=== PATIENT | female | born 1985 | race Hispanic/Latino ===

== ENCOUNTER 2020-08-19 00:14 | Emergency (ER) | payer MEDICAID ==
[~2020-08-19] VITALS: Ht 180.3 cm; Wt 174.6 kg
[~2020-08-19 00:14] MED LIST: DICY20TA11 PO; FAMO20TA8 PO; LEVO500T89 PO; METF-890 PO; METR-172 PO; VENL150T3 PO
[2020-08-19 00:22] VITALS: BP 141/83
[2020-08-19 00:59] LABS: BASOPHILS % (AUTO) 0.5 % (0.0-5.0); HEMATOCRIT 39.2 % (36-48); LYMPHOCYTES % (AUTO) 34.3 % (21.0-51.0); MEAN CORPUSCULAR HEMOGLOBIN 27.3 pg (27.0-33.0); MEAN CORPUSCULAR HGB CONC 32.4 g/dL (32.0-36.0); MEAN CORPUSCULAR VOLUME 84.3 fL (79-99); MONOCYTES % (AUTO) 4.2 % (3.0-13.0); NEUTROPHILS % (AUTO) 57.7 % (40.0-77.0); PLATELET COUNT (AUTO) 285 K/uL (130-400); RED BLOOD CELL COUNT(AUTO) 4.65 MIL/uL (4.00-5.50); RED CELL DISTRIBUTION WIDTH 16.2 % (11.0-15.5); WHITE BLOOD COUNT (AUTO) 10.5 K/uL (4.8-10.8)
[2020-08-19 01:12] LABS: CARBON DIOXIDE 26 mmol/L (21-32); CHLORIDE 105 mmol/L (101-111); GLOMERULAR FILTR. RATE CALC 67 mL/min (>60); GLUCOSE,RANDOM 114 mg/dL (70-105); POTASSIUM 3.5 mmol/L (3.5-5.1); SODIUM SERUM 141 mmol/L (136-145); UREA NITROGEN, BLOOD 13 mg/dL (7-18)
[2020-08-19 01:16] LABS: ALANINE AMINOTRANSFERASE 33 U/L (12-78); ALBUMIN 3.5 g/dL (3.5-5.0); ASPARTATE AMINOTRANSFERASE 17 U/L (10-37); BILIRUBIN,TOTAL 0.2 mg/dL (0.2-1.0); CREATINE KINASE, TOTAL 75 U/L (21-232); TOTAL PROTEIN, SERUM 7.6 g/dL (6.0-8.3)
[2020-08-19 01:18] LABS: SALICYLATE < 2.8 mg/dL (2.8-20.0)
[2020-08-19 01:19] LABS: ACETAMINOPHEN < 1 mcg/mL (10-30); ALCOHOL, BLOOD < 3 mg/dL (0-10)
[2020-08-19 04:30] LABS: APPEARANCE,URINE Clear (CLEAR); BILIRUBIN,URINE Negative (NEGATIVE); COLOR,URINE Yellow (YELLOW); GLUCOSE, URINE (UA) Negative (NEGATIVE); KETONES,URINE Trace mg/dL (NEGATIVE); LEUKOCYTE ESTERASE ,URINE Negative (NEGATIVE); NITRATE,URINE Negative (NEGATIVE); OCCULT BLOOD,URINE Moderate (NEGATIVE); PROTEIN,URINE Negative (NEGATIVE); UROBILINOGEN,URINE 0.2 mg/dL (0.2-1.0)
[2020-08-19 04:32] LABS: HCG,QUAL RESULT NEGATIVE (NEGATIVE)
[2020-08-19 04:39] LABS: AMPHET/METH SCREEN,URINE NEGATIVE (NEGATIVE); BARBITURATE SCREEN, URINE NEGATIVE (NEGATIVE); BENZODIAZEPINES SCREEN,URINE NEGATIVE (NEGATIVE); CANNABINOID SCREEN,URINE NEGATIVE (NEGATIVE); COCAINE SCREEN,URINE NEGATIVE (NEGATIVE); OPIATE SCREEN,URINE NEGATIVE (NEGATIVE); PHENCYCLIDINE SCREEN,URINE NEGATIVE (NEGATIVE)
[2020-08-19 04:40] LABS: BACTERIA,URINE Rare /HPF (None Seen); SQUAMOUS EPITHELIAL CELL,UR Rare /HPF (0-2); WBC,URINE None Seen /HPF (0-1)
== END 2020-08-19 06:22 | disposition home or self-care (01) ==
LOC: EDH 00:14
DX: R45.851 Suicidal ideations (principal); F19.10 Other psychoactive substance abuse, uncomplicated; R19.7 Diarrhea, unspecified; I10 Essential (primary) hypertension; E11.9 Type 2 diabetes mellitus without complications; J45.909 Unspecified asthma, uncomplicated; Z79.84 Long term (current) use of oral hypoglycemic drugs; Z79.899 Other long term (current) drug therapy
CPT/HCPCS: 36415; 80053; 80305; 81001; 81025; 82550; 85025; 99283; G0481

== ENCOUNTER 2020-08-31 03:26 | Emergency (ER) | payer MEDICAID ==
[~2020-08-31] VITALS: Ht 180.3 cm; Wt 174.6 kg
[2020-08-31 03:58] VITALS: BP 113/50
[2020-08-31 04:49] LABS: HEMATOCRIT 37.7 % (36-48); MEAN CORPUSCULAR HEMOGLOBIN 27.6 pg (27.0-33.0); MEAN CORPUSCULAR HGB CONC 32.9 g/dL (32.0-36.0); MEAN CORPUSCULAR VOLUME 83.8 fL (79-99); PLATELET COUNT (AUTO) 269 K/uL (130-400); RED CELL DISTRIBUTION WIDTH 15.5 % (11.0-15.5); WHITE BLOOD COUNT (AUTO) 8.3 K/uL (4.8-10.8)
[2020-08-31 04:51] LABS: APPEARANCE,URINE Clear (CLEAR); BILIRUBIN,URINE Negative (NEGATIVE); COLOR,URINE Yellow (YELLOW); GLUCOSE, URINE (UA) Negative (NEGATIVE); KETONES,URINE Negative (NEGATIVE); LEUKOCYTE ESTERASE ,URINE Trace (NEGATIVE); NITRATE,URINE Negative (NEGATIVE); OCCULT BLOOD,URINE Large (NEGATIVE); PROTEIN,URINE Negative (NEGATIVE); UROBILINOGEN,URINE 0.2 mg/dL (0.2-1.0)
[2020-08-31 04:59] LABS: AMPHET/METH SCREEN,URINE NEGATIVE (NEGATIVE); BARBITURATE SCREEN, URINE NEGATIVE (NEGATIVE); BENZODIAZEPINES SCREEN,URINE NEGATIVE (NEGATIVE); CANNABINOID SCREEN,URINE NEGATIVE (NEGATIVE); COCAINE SCREEN,URINE NEGATIVE (NEGATIVE); OPIATE SCREEN,URINE NEGATIVE (NEGATIVE); PHENCYCLIDINE SCREEN,URINE NEGATIVE (NEGATIVE)
[2020-08-31 05:00] LABS: CREATININE 1.1 mg/dL (0.5-1.5); POTASSIUM 3.1 mmol/L (3.5-5.1)
[2020-08-31 05:02] LABS: ALBUMIN 3.4 g/dL (3.5-5.0); BILIRUBIN,TOTAL 0.2 mg/dL (0.2-1.0); TOTAL PROTEIN, SERUM 7.8 g/dL (6.0-8.3)
[2020-08-31 05:20] LABS: RBC,URINE None Seen /HPF (0-1); WBC,URINE 0-1 /HPF (0-1)
[2020-08-31 05:21] LABS: BACTERIA,URINE Rare /HPF (None Seen); SQUAMOUS EPITHELIAL CELL,UR Few /HPF (0-2)
[2020-08-31 05:47] LABS: EOSINOPHILS % (MANUAL) 2 % (1-6); LYMPHOCYTES % (MANUAL) 32 % (22-44); MONOCYTES % (MANUAL) 7 % (2-9); SEGMENTED NEUTROPHILS % 59 % (40-70)
[2020-08-31 05:48] LABS: MAN.DIFF COMMENT-IMPRESSION MANUAL DIFFERENTIAL; PLATELET MORPHOLOGY COMMENT ADEQUATE
[2020-08-31] MEDS: METRONIDAZOLE 500MG/100ML BAG 100 ML IVPB ONE (05:49)
[2020-08-31] MEDS: ONDANSETRON 4MG INJ IVP ONE (05:49)
[2020-08-31] MEDS: KETOROLAC 30MG VIAL (30MG/ML) IV ONE (05:49)
[2020-08-31] MEDS: 0.9%NACL 1000ML 1,000 ML IV ONE (05:49)
[2020-08-31] MEDS ORDERED: DICY20TA2 PO (06:01)
[2020-08-31] MEDS ORDERED: ONDA4TAB10 PO (06:01)
[2020-08-31] MEDS ORDERED: METR500T PO (06:01)
[2020-08-31] MEDS ORDERED: LEVO750T46 PO (06:01)
[2020-08-31 06:38] VITALS: BP 133/87
[2020-08-31] MEDS: LEVOFLOXACIN 750 MG/D5W 150 ML 150 ML IV SCH (06:49)
== END 2020-08-31 06:56 | disposition home or self-care (01) ==
LOC: EDH 04:30
DX: K57.92 Diverticulitis of intestine, part unspecified, without perforation or abscess without bleeding (principal); E86.9 Volume depletion, unspecified; E11.9 Type 2 diabetes mellitus without complications; F31.9 Bipolar disorder, unspecified; F41.9 Anxiety disorder, unspecified; Z79.1 Long term (current) use of non-steroidal anti-inflammatories (NSAID); Z79.84 Long term (current) use of oral hypoglycemic drugs; Z79.899 Other long term (current) drug therapy
CPT/HCPCS: 36415; 80053; 80305; 81001; 83690; 84703; 85025; 96365; 96375; 99284; J1885; J2405; J3490

== ENCOUNTER 2020-09-07 04:08 | Emergency (ER) | payer MEDICAID ==
[~2020-09-07] VITALS: Ht 180.3 cm; Wt 176.9 kg
[~2020-09-07 04:08] MED LIST changes: +DICY20TA2 PO; +LEVO750T46 PO; +METR500T PO; +ONDA4TAB10 PO
[2020-09-07 04:14] VITALS: BP 137/87
[2020-09-07 05:05] LABS: APPEARANCE,URINE Clear (CLEAR); BILIRUBIN,URINE Negative (NEGATIVE); COLOR,URINE Yellow (YELLOW); GLUCOSE, URINE (UA) Negative (NEGATIVE); KETONES,URINE Trace mg/dL (NEGATIVE); LEUKOCYTE ESTERASE ,URINE Negative (NEGATIVE); NITRATE,URINE Negative (NEGATIVE); OCCULT BLOOD,URINE Negative (NEGATIVE); PROTEIN,URINE Trace mg/dL (NEGATIVE)
[2020-09-07 05:11] LABS: BACTERIA,URINE None Seen /HPF (None Seen); RBC,URINE 0-1 /HPF (0-1); SQUAMOUS EPITHELIAL CELL,UR 0-2 /HPF (0-2); WBC,URINE 0-1 /HPF (0-1)
[2020-09-07] MEDS ORDERED: DICY20TA2 PO (05:41)
[2020-09-07] MEDS ORDERED: METO-296 PO (05:41)
[2020-09-07] MEDS ORDERED: PANT40TA54 PO (05:41)
[2020-09-07] MEDS ORDERED: ONDA4TAB10 PO (05:41)
[2020-09-07] MEDS ORDERED: MAG/ALUM/SIMETH 30 ML UDCUP PO ONE (06:00)
[2020-09-07] MEDS ORDERED: FAMOTIDINE 20MG TAB PO ONE (06:00)
[2020-09-07] MEDS ORDERED: LIDOCAINE HCL 2% VISCOUS 15 ML UDCUP PO ONE (06:00)
[2020-09-07] MEDS ORDERED: PANTOPRAZOLE 40 MG TAB DR PO ONE (06:00)
[2020-09-07 06:02] VITALS: BP 115/80
== END 2020-09-07 06:05 | disposition home or self-care (01) ==
LOC: EDH 04:08
DX: R10.13 Epigastric pain (principal); R11.2 Nausea with vomiting, unspecified; E11.9 Type 2 diabetes mellitus without complications; I10 Essential (primary) hypertension; J45.909 Unspecified asthma, uncomplicated; Z79.84 Long term (current) use of oral hypoglycemic drugs; Z79.899 Other long term (current) drug therapy
CPT/HCPCS: 81001

== ENCOUNTER 2020-10-15 19:13 | Emergency (ER) | payer MEDICAID ==
[~2020-10-15] VITALS: Ht 180.3 cm; Wt 172.8 kg
[~2020-10-15 19:13] MED LIST changes: +METO-296 PO; +PANT40TA54 PO
[2020-10-15 19:18] VITALS: BP 111/62
[2020-10-15 21:14] LABS: APPEARANCE,URINE Clear (CLEAR); BILIRUBIN,URINE Negative (NEGATIVE); COLOR,URINE Yellow (YELLOW); GLUCOSE, URINE (UA) Negative (NEGATIVE); KETONES,URINE Trace mg/dL (NEGATIVE); LEUKOCYTE ESTERASE ,URINE Negative (NEGATIVE); NITRATE,URINE Negative (NEGATIVE); OCCULT BLOOD,URINE Moderate (NEGATIVE); PROTEIN,URINE Negative (NEGATIVE)
[2020-10-15 21:16] LABS: HCG,QUAL RESULT NEGATIVE (NEGATIVE)
[2020-10-15 21:21] LABS: BACTERIA,URINE Rare /HPF (None Seen); SQUAMOUS EPITHELIAL CELL,UR Few /HPF (0-2); WBC,URINE 0-1 /HPF (0-1)
[2020-10-15 21:22] LABS: MUCUS,URINE Rare LPF (None Seen)
[2020-10-15 21:42] LABS: BASOPHILS % (AUTO) 0.7 % (0.0-5.0); EOSINOPHILS % (AUTO) 3.3 % (0.0-8.0); LYMPHOCYTES % (AUTO) 37.9 % (21.0-51.0); MEAN CORPUSCULAR HEMOGLOBIN 28.3 pg (27.0-33.0); MEAN CORPUSCULAR HGB CONC 33.5 g/dL (32.0-36.0); MEAN CORPUSCULAR VOLUME 84.4 fL (79-99); MONOCYTES % (AUTO) 4.7 % (3.0-13.0); PLATELET COUNT (AUTO) 261 K/uL (130-400); RED BLOOD CELL COUNT(AUTO) 4.74 MIL/uL (4.00-5.50); RED CELL DISTRIBUTION WIDTH 14.9 % (11.0-15.5); WHITE BLOOD COUNT (AUTO) 8.5 K/uL (4.8-10.8)
[2020-10-15] MEDS ORDERED: FAMOTIDINE 20MG TAB PO ONE (22:00)
[2020-10-15] MEDS ORDERED: PANTOPRAZOLE 40 MG TAB DR PO ONE (22:00)
[2020-10-15] MEDS ORDERED: DICYCLOMINE HCL 20 MG TAB PO ONE (22:00)
[2020-10-15] MEDS ORDERED: ONDANSETRON ODT 4MG TAB SL ONE (22:00)
[2020-10-15 22:05] LABS: ALBUMIN 3.7 g/dL (3.5-5.0); BILIRUBIN,TOTAL 0.3 mg/dL (0.2-1.0); CREATININE 0.8 mg/dL (0.5-1.5); TOTAL PROTEIN, SERUM 8.2 g/dL (6.0-8.3)
[2020-10-15] MEDS ORDERED: METRONIDAZOLE 500 MG TABLET PO ONE (23:30)
[2020-10-15] MEDS ORDERED: METR500T PO (23:37)
[2020-10-15] MEDS ORDERED: [UNRECOGNIZED DRUG - CODE] PO (23:37)
== END 2020-10-15 23:57 | disposition home or self-care (01) ==
LOC: EDH 19:13
DX: R10.84 Generalized abdominal pain (principal); E11.9 Type 2 diabetes mellitus without complications; I10 Essential (primary) hypertension; J45.909 Unspecified asthma, uncomplicated; Z79.84 Long term (current) use of oral hypoglycemic drugs; Z79.899 Other long term (current) drug therapy
CPT/HCPCS: 36415; 80053; 81001; 81025; 82150; 83690; 85025

== ENCOUNTER 2020-12-23 01:25 | Emergency (ER) | payer MEDICAID ==
[~2020-12-23 01:25] MED LIST changes: -DICY20TA11 PO; +DICY20TA3 PO; -LEVO500T89 PO; +LEVO500T90 PO; +[UNRECOGNIZED DRUG - CODE] PO
[2020-12-23 02:32] LABS: BASOPHILS % (AUTO) 0.3 % (0.0-5.0); EOSINOPHILS % (AUTO) 2.3 % (0.0-8.0); HEMATOCRIT 39.7 % (36-48); LYMPHOCYTES % (AUTO) 31.7 % (21.0-51.0); MEAN CORPUSCULAR HEMOGLOBIN 28.3 pg (27.0-33.0); MEAN CORPUSCULAR VOLUME 85.7 fL (79-99); MONOCYTES % (AUTO) 4.9 % (3.0-13.0); NEUTROPHILS % (AUTO) 60.6 % (40.0-77.0); PLATELET COUNT (AUTO) 258 K/uL (130-400); RED BLOOD CELL COUNT(AUTO) 4.63 MIL/uL (4.00-5.50); RED CELL DISTRIBUTION WIDTH 14.6 % (11.0-15.5); WHITE BLOOD COUNT (AUTO) 10.1 K/uL (4.8-10.8)
[2020-12-23 02:40] LABS: BILIRUBIN,URINE Negative (NEGATIVE); COLOR,URINE Yellow (YELLOW); GLUCOSE, URINE (UA) Negative (NEGATIVE); KETONES,URINE Trace mg/dL (NEGATIVE); LEUKOCYTE ESTERASE ,URINE Large (NEGATIVE); NITRATE,URINE Negative (NEGATIVE); OCCULT BLOOD,URINE Moderate (NEGATIVE); PH,URINE 5.5 (5.0-8.0); PROTEIN,URINE Trace mg/dL (NEGATIVE)
[2020-12-23 02:41] LABS: APPEARANCE,URINE CLOUDY (CLEAR)
[2020-12-23 02:49] LABS: BACTERIA,URINE Many /HPF (None Seen)
[2020-12-23 02:52] LABS: CREATININE 0.9 mg/dL (0.5-1.5)
[2020-12-23] MEDS ORDERED: KETOROLAC 15MG/ML VIAL (15MG/ML) IV ONE (03:00)
[2020-12-23] MEDS ORDERED: LOPERAMIDE 1 MG/7.5 ML UDCUP PO SCH (03:00)
[2020-12-23] MEDS ORDERED: ZOSYN 3.375GM +NS 50ML IV ONE (03:00)
[2020-12-23 03:03] LABS: ALBUMIN 3.6 g/dL (3.5-5.0); BILIRUBIN,TOTAL 0.2 mg/dL (0.2-1.0); TOTAL PROTEIN, SERUM 7.9 g/dL (6.0-8.3)
[2020-12-23] MEDS ORDERED: 0.9%NACL 100ML 100 ML ONE (03:04)
[2020-12-23] MEDS ORDERED: LOPERAMIDE HCL 2 MG CAP PO ONE (03:04)
[2020-12-23] MEDS ORDERED: LOPE2TAB26 PO (03:44)
[2020-12-23] MEDS ORDERED: AMOX-429 PO (03:44)
[2020-12-23 04:25] VITALS: BP 128/58
== END 2020-12-23 09:14 | disposition home or self-care (01) ==
LOC: EDH 01:25
DX: K57.92 Diverticulitis of intestine, part unspecified, without perforation or abscess without bleeding (principal); E11.9 Type 2 diabetes mellitus without complications; I10 Essential (primary) hypertension; J45.909 Unspecified asthma, uncomplicated; F17.200 Nicotine dependence, unspecified, uncomplicated; Z79.1 Long term (current) use of non-steroidal anti-inflammatories (NSAID); Z79.84 Long term (current) use of oral hypoglycemic drugs; Z79.899 Other long term (current) drug therapy
CPT/HCPCS: 36415; 80053; 81001; 83690; 84702; 85025; 87088; 96365; 96366; 96375; 99284; J1885; J2543

== ENCOUNTER 2021-05-30 10:36 | Emergency (ER) | payer MEDICAID ==
[~2021-05-30] VITALS: Ht 172.7 cm; Wt 176.9 kg
[~2021-05-30 10:36] MED LIST changes: +AMOX-429 PO; +LOPE2TAB26 PO
[2021-05-30 11:49] LABS: BASOPHILS % (AUTO) 0.5 % (0.0-5.0); EOSINOPHILS % (AUTO) 2.4 % (0.0-8.0); HEMATOCRIT 38.4 % (36-48); LYMPHOCYTES % (AUTO) 31.8 % (21.0-51.0); MEAN CORPUSCULAR HEMOGLOBIN 28.2 pg (27.0-33.0); MEAN CORPUSCULAR HGB CONC 33.1 g/dL (32.0-36.0); MEAN CORPUSCULAR VOLUME 85.1 fL (79-99); MONOCYTES % (AUTO) 6.3 % (3.0-13.0); NEUTROPHILS % (AUTO) 58.8 % (40.0-77.0); PLATELET COUNT (AUTO) 251 K/uL (130-400); RED BLOOD CELL COUNT(AUTO) 4.51 MIL/uL (4.00-5.50); RED CELL DISTRIBUTION WIDTH 14.3 % (11.0-15.5); WHITE BLOOD COUNT (AUTO) 8.8 K/uL (4.8-10.8)
[2021-05-30 12:09] LABS: CARBON DIOXIDE 27 mmol/L (21-32); CHLORIDE 106 mmol/L (101-111); CREATININE 0.9 mg/dL (0.5-1.5); GLOMERULAR FILTR. RATE CALC 76 mL/min (>60); GLUCOSE,RANDOM 106 mg/dL (70-105); POTASSIUM 3.8 mmol/L (3.5-5.1); SODIUM SERUM 143 mmol/L (136-145); UREA NITROGEN, BLOOD 17 mg/dL (7-18)
[2021-05-30 12:13] LABS: ALANINE AMINOTRANSFERASE 31 U/L (12-78); ALBUMIN 3.4 g/dL (3.5-5.0); ASPARTATE AMINOTRANSFERASE 17 U/L (10-37); BILIRUBIN,TOTAL 0.2 mg/dL (0.2-1.0); TOTAL PROTEIN, SERUM 7.8 g/dL (6.0-8.3)
[2021-05-30 12:28] LABS: ACETAMINOPHEN < 1 mcg/mL (10-30); ALCOHOL, BLOOD < 3 mg/dL (0-10); SALICYLATE < 2.8 mg/dL (2.8-20.0)
[2021-05-30 14:11] VITALS: BP 142/72
[2021-05-30 16:23] LABS: APPEARANCE,URINE CLEAR (CLEAR); BILIRUBIN,URINE NEGATIVE (NEGATIVE); COLOR,URINE YELLOW (YELLOW); GLUCOSE, URINE (UA) NEGATIVE (NEGATIVE); KETONES,URINE NEGATIVE (NEGATIVE); LEUKOCYTE ESTERASE ,URINE SMALL (NEGATIVE); NITRATE,URINE NEGATIVE (NEGATIVE); OCCULT BLOOD,URINE SMALL (NEGATIVE); PROTEIN,URINE NEGATIVE (NEGATIVE); UROBILINOGEN,URINE 0.2 mg/dL (0.2-1.0)
[2021-05-30 16:31] LABS: AMPHET/METH SCREEN,URINE NEGATIVE (NEGATIVE); BACTERIA,URINE Few /HPF (None Seen); BARBITURATE SCREEN, URINE NEGATIVE (NEGATIVE); BENZODIAZEPINES SCREEN,URINE NEGATIVE (NEGATIVE); CANNABINOID SCREEN,URINE NEGATIVE (NEGATIVE); COCAINE SCREEN,URINE NEGATIVE (NEGATIVE); OPIATE SCREEN,URINE NEGATIVE (NEGATIVE); PHENCYCLIDINE SCREEN,URINE NEGATIVE (NEGATIVE); SQUAMOUS EPITHELIAL CELL,UR Few /HPF (0-2)
== END 2021-05-30 20:06 | disposition home or self-care (01) ==
LOC: EDH 10:36
DX: T43.591A Poisoning by other antipsychotics and neuroleptics, accidental (unintentional), initial encounter (principal); E11.9 Type 2 diabetes mellitus without complications; F20.9 Schizophrenia, unspecified; I10 Essential (primary) hypertension; J45.909 Unspecified asthma, uncomplicated; F31.9 Bipolar disorder, unspecified; F17.200 Nicotine dependence, unspecified, uncomplicated; Z79.84 Long term (current) use of oral hypoglycemic drugs; Y92.89 Other specified places as the place of occurrence of the external cause
CPT/HCPCS: 36415; 80053; 80305; 81001; 85025; 87088; 93005; 99284; G0481

== ENCOUNTER 2021-06-24 05:33 | Emergency (ER) | payer MEDICAID ==
[~2021-06-24] VITALS: Ht 180.3 cm; Wt 176.4 kg
[2021-06-24 06:12] LABS: BASOPHILS % (AUTO) 0.6 % (0.0-5.0); EOSINOPHILS % (AUTO) 2.4 % (0.0-8.0); HEMATOCRIT 39.2 % (36-48); LYMPHOCYTES % (AUTO) 28.8 % (21.0-51.0); MEAN CORPUSCULAR HEMOGLOBIN 28.4 pg (27.0-33.0); MEAN CORPUSCULAR HGB CONC 33.2 g/dL (32.0-36.0); MEAN CORPUSCULAR VOLUME 85.6 fL (79-99); MONOCYTES % (AUTO) 5.9 % (3.0-13.0); NEUTROPHILS % (AUTO) 62.1 % (40.0-77.0); PLATELET COUNT (AUTO) 240 K/uL (130-400); RED BLOOD CELL COUNT(AUTO) 4.58 MIL/uL (4.00-5.50); RED CELL DISTRIBUTION WIDTH 14.6 % (11.0-15.5); WHITE BLOOD COUNT (AUTO) 8.8 K/uL (4.8-10.8)
[2021-06-24 06:13] LABS: APPEARANCE,URINE Clear (CLEAR); BILIRUBIN,URINE Negative (NEGATIVE); COLOR,URINE Yellow (YELLOW); GLUCOSE, URINE (UA) Negative (NEGATIVE); KETONES,URINE Negative (NEGATIVE); LEUKOCYTE ESTERASE ,URINE Negative (NEGATIVE); NITRATE,URINE Negative (NEGATIVE); OCCULT BLOOD,URINE Moderate (NEGATIVE); PH,URINE 5.5 (5.0-8.0); PROTEIN,URINE Negative (NEGATIVE); UROBILINOGEN,URINE 0.2 mg/dL (0.2-1.0)
[2021-06-24] MEDS ORDERED: ONDANSETRON 4MG INJ ONE (06:14)
[2021-06-24] MEDS ORDERED: 0.9%NACL 1000ML 1,000 ML IV ONE (06:14)
[2021-06-24] MEDS ORDERED: KETOROLAC 30MG VIAL (30MG/ML) ONE (06:14)
[2021-06-24 06:23] LABS: HCG,QUAL RESULT NEGATIVE (NEGATIVE)
[2021-06-24 06:24] LABS: BACTERIA,URINE None Seen /HPF (None Seen); WBC,URINE 0-1 /HPF (0-1)
[2021-06-24 06:25] LABS: SQUAMOUS EPITHELIAL CELL,UR Few /HPF (0-2)
[2021-06-24] MEDS ORDERED: ONDANSETRON 4MG INJ IVP SCH (06:30)
[2021-06-24] MEDS: 0.9%NACL 1000ML 1,000 ML IV SCH ×2 (06:30→06:35)
[2021-06-24] MEDS ORDERED: KETOROLAC 30MG VIAL (30MG/ML) IVP SCH (06:30)
[2021-06-24 06:34] LABS: ALBUMIN 3.2 g/dL (3.5-5.0); BILIRUBIN,TOTAL 0.4 mg/dL (0.2-1.0); CREATININE 0.7 mg/dL (0.5-1.5); POTASSIUM 3.9 mmol/L (3.5-5.1); TOTAL PROTEIN, SERUM 7.3 g/dL (6.0-8.3)
[2021-06-24] MEDS ORDERED: ONDA-104 PO (08:39)
[2021-06-24] MEDS ORDERED: DICY10 PO (08:39)
[2021-06-24 09:00] VITALS: BP 112/49
== END 2021-06-24 09:02 | disposition home or self-care (01) ==
LOC: EDH 05:33
DX: R10.31 Right lower quadrant pain (principal); R10.2 Pelvic and perineal pain; J45.909 Unspecified asthma, uncomplicated; E11.9 Type 2 diabetes mellitus without complications; I10 Essential (primary) hypertension; F17.210 Nicotine dependence, cigarettes, uncomplicated; Z79.899 Other long term (current) drug therapy; Z79.84 Long term (current) use of oral hypoglycemic drugs; Z98.890 Other specified postprocedural states
CPT/HCPCS: 36415; 74176; 80053; 81001; 81025; 83690; 85025; 96361; 96374; 96375; 99284; J1885; J2405; J7030

== ENCOUNTER 2021-06-26 23:01 | Emergency (ER) | payer MEDICAID ==
[~2021-06-26] VITALS: Ht 180.3 cm; Wt 179.2 kg
[~2021-06-26 23:01] MED LIST changes: +DICY10 PO; +ONDA-104 PO
[2021-06-26 23:21] LABS: APPEARANCE,URINE Cloudy (CLEAR); BILIRUBIN,URINE Negative (NEGATIVE); COLOR,URINE Yellow (YELLOW); GLUCOSE, URINE (UA) Negative (NEGATIVE); KETONES,URINE Negative (NEGATIVE); LEUKOCYTE ESTERASE ,URINE Small (NEGATIVE); NITRATE,URINE Negative (NEGATIVE); OCCULT BLOOD,URINE Large (NEGATIVE); PROTEIN,URINE POS 1+ mg/dL (NEGATIVE)
[2021-06-26 23:34] LABS: BACTERIA,URINE Few /HPF (None Seen); RBC,URINE 26-50 /HPF (0-1); YEAST,URINE BUDDING Rare /HPF (None Seen)
[2021-06-26 23:35] LABS: SQUAMOUS EPITHELIAL CELL,UR Few /HPF (0-2)
[2021-06-26] MEDS ORDERED: PHEN-847 PO (23:50)
[2021-06-26] MEDS ORDERED: MACR100 PO (23:50)
[2021-06-27] MEDS ORDERED: PHENAZOPYRIDINE HCL 200 MG TABLET PO ONE
[2021-06-27] MEDS ORDERED: NITROFURANTOIN MONOHYD/M-CRYST 100 MG CAPSULE PO ONE
[2021-06-27 00:01] VITALS: BP 142/85
== END 2021-06-27 00:04 | disposition home or self-care (01) ==
LOC: EDH 23:01
DX: R30.0 Dysuria (principal); E11.9 Type 2 diabetes mellitus without complications; I10 Essential (primary) hypertension; J45.909 Unspecified asthma, uncomplicated; K21.9 Gastro-esophageal reflux disease without esophagitis; F17.200 Nicotine dependence, unspecified, uncomplicated; F10.20 Alcohol dependence, uncomplicated; Z79.84 Long term (current) use of oral hypoglycemic drugs; Z79.899 Other long term (current) drug therapy; Z87.440 Personal history of urinary (tract) infections
CPT/HCPCS: 81001; 87088

== ENCOUNTER 2021-10-20 14:14 | Emergency (ER) | payer MEDICAID ==
[~2021-10-20] VITALS: Ht 180.3 cm; Wt 166.9 kg
[~2021-10-20 14:14] MED LIST changes: +LEVO-70 PO; -LEVO500T90 PO; -LEVO750T46 PO; +LEVO750T68 PO; +MACR100 PO; +PHEN-847 PO
[2021-10-20 14:18] VITALS: BP 123/83
[2021-10-20] MEDS ORDERED: BENZONATATE 100 MG CAPSULE PO SCH (16:00)
[2021-10-20] MEDS ORDERED: ACETAMINOPHEN 500 MG TABLET PO ONE (16:00)
[2021-10-20] MEDS ORDERED: GUAIF10 PO (16:03)
[2021-10-20] MEDS ORDERED: IBUP-2070 PO (16:03)
[2021-10-20] MEDS ORDERED: CETI10TA57 PO (16:03)
[2021-10-20] MEDS ORDERED: CETIRIZINE HCL 5 MG TABLET PO ONE (16:10)
[2021-10-21] MEDS ORDERED: CETIRIZINE HCL 5 MG TABLET PO SCH (09:00)
== END 2021-10-20 16:22 | disposition home or self-care (01) ==
LOC: EDH 14:14
DX: U07.1 COVID-19 (principal); J45.909 Unspecified asthma, uncomplicated; E11.9 Type 2 diabetes mellitus without complications; K21.9 Gastro-esophageal reflux disease without esophagitis; I10 Essential (primary) hypertension; F17.200 Nicotine dependence, unspecified, uncomplicated; Z90.89 Acquired absence of other organs; Z98.890 Other specified postprocedural states; Z79.84 Long term (current) use of oral hypoglycemic drugs; Z79.899 Other long term (current) drug therapy
CPT/HCPCS: 99284; 87635; 87880; 87804 ×2; C9803

== ENCOUNTER 2021-11-06 20:26 | Emergency (ER) | payer MEDICAID ==
[~2021-11-06] VITALS: Ht 180.3 cm; Wt 165.1 kg
[~2021-11-06 20:26] MED LIST changes: +CETI10TA57 PO; +GUAIF10 PO; +IBUP-2070 PO
[2021-11-06 20:46] LABS: BASOPHILS % (AUTO) 0.6 % (0.0-5.0); EOSINOPHILS % (AUTO) 2.5 % (0.0-8.0); HEMATOCRIT 40.6 % (36-48); LYMPHOCYTES % (AUTO) 34.2 % (21.0-51.0); MEAN CORPUSCULAR HEMOGLOBIN 28.1 pg (27.0-33.0); MEAN CORPUSCULAR HGB CONC 33.5 g/dL (32.0-36.0); MEAN CORPUSCULAR VOLUME 83.9 fL (79-99); MONOCYTES % (AUTO) 6.1 % (3.0-13.0); NEUTROPHILS % (AUTO) 56.4 % (40.0-77.0); PLATELET COUNT (AUTO) 286 K/uL (130-400); RED BLOOD CELL COUNT(AUTO) 4.84 MIL/uL (4.00-5.50); RED CELL DISTRIBUTION WIDTH 14.5 % (11.0-15.5); WHITE BLOOD COUNT (AUTO) 9.4 K/uL (4.8-10.8)
[2021-11-06 20:49] LABS: HCG,QUALITATIVE URINE NEGATIVE (NEGATIVE)
[2021-11-06 20:50] LABS: APPEARANCE,URINE CLEAR (CLEAR); BILIRUBIN,URINE NEGATIVE (NEGATIVE); COLOR,URINE YELLOW (YELLOW); GLUCOSE, URINE (UA) NEGATIVE (NEGATIVE); KETONES,URINE 5 mg/dL (NEGATIVE); LEUKOCYTE ESTERASE ,URINE NEGATIVE Leu/uL (NEGATIVE); NITRATE,URINE NEGATIVE (NEGATIVE); OCCULT BLOOD,URINE LARGE (NEGATIVE); PH,URINE 5.5 (5.0-8.0); PROTEIN,URINE TRACE mg/dL (NEGATIVE)
[2021-11-06 20:52] LABS: AMPHET/METH SCREEN,URINE NEGATIVE (NEGATIVE); BARBITURATE SCREEN, URINE NEGATIVE (NEGATIVE); BENZODIAZEPINES SCREEN,URINE NEGATIVE (NEGATIVE); COCAINE SCREEN,URINE NEGATIVE (NEGATIVE)
[2021-11-06 20:53] LABS: CANNABINOID SCREEN,URINE POSITIVE (NEGATIVE); PHENCYCLIDINE SCREEN,URINE POSITIVE (NEGATIVE)
[2021-11-06 20:57] LABS: CARBON DIOXIDE 26 mmol/L (21-32); CHLORIDE 104 mmol/L (101-111); CREATININE 0.9 mg/dL (0.5-1.5); GLOMERULAR FILTR. RATE CALC 76 mL/min (>60); GLUCOSE,RANDOM 132 mg/dL (70-105); POTASSIUM 3.8 mmol/L (3.5-5.1); SODIUM SERUM 139 mmol/L (136-145); UREA NITROGEN, BLOOD 19 mg/dL (7-18)
[2021-11-06 21:01] LABS: ACETAMINOPHEN < 1 mcg/mL (10-30); ALANINE AMINOTRANSFERASE 34 U/L (12-78); ALBUMIN 3.6 g/dL (3.5-5.0); ALCOHOL, BLOOD 4 mg/dL (0-10); ASPARTATE AMINOTRANSFERASE 24 U/L (10-37); SALICYLATE < 2.8 mg/dL (2.8-20.0); TOTAL PROTEIN, SERUM 8.3 g/dL (6.0-8.3)
[2021-11-06 21:03] LABS: BACTERIA,URINE Few /HPF (None Seen); MUCUS,URINE Few LPF (None Seen); SQUAMOUS EPITHELIAL CELL,UR Few /HPF (0-2); URIC ACID CRYSTALS,URINE Few /LPF (None Seen)
[2021-11-07 04:25] VITALS: BP 136/74
== END 2021-11-07 04:31 | disposition home or self-care (01) ==
LOC: EDH 20:26
DX: U07.1 COVID-19 (principal); F32.A Depression, unspecified; E11.9 Type 2 diabetes mellitus without complications; I10 Essential (primary) hypertension; J45.909 Unspecified asthma, uncomplicated; K21.9 Gastro-esophageal reflux disease without esophagitis; F17.200 Nicotine dependence, unspecified, uncomplicated; Z79.1 Long term (current) use of non-steroidal anti-inflammatories (NSAID); Z79.84 Long term (current) use of oral hypoglycemic drugs; Z79.899 Other long term (current) drug therapy; Z87.440 Personal history of urinary (tract) infections; Z91.51 Personal history of suicidal behavior
CPT/HCPCS: 99283; 87635; 80053; 80305; 85025; 81025; 36415; 81001; G0481; C9803

== ENCOUNTER 2022-01-05 17:25 | Emergency (ER) | payer MEDICAID ==
[~2022-01-05] VITALS: Ht 180.3 cm; Wt 172.4 kg
[2022-01-05 17:55] VITALS: BP 136/70
[2022-01-05] MEDS ORDERED: ACET-66 PO (20:41)
== END 2022-01-05 20:46 | disposition home or self-care (01) ==
LOC: EDH 17:25
DX: J06.9 Acute upper respiratory infection, unspecified (principal); Z20.822 Contact with and (suspected) exposure to COVID-19; J45.909 Unspecified asthma, uncomplicated; I11.0 Hypertensive heart disease with heart failure; E11.9 Type 2 diabetes mellitus without complications; F32.A Depression, unspecified; Z79.899 Other long term (current) drug therapy
CPT/HCPCS: 99283; 87635; 87880; 87804 ×2; C9803

== ENCOUNTER 2022-01-14 12:25 | Emergency (ER) | payer MEDICAID ==
[~2022-01-14] VITALS: Ht 180.3 cm; Wt 172.4 kg
[~2022-01-14 12:25] MED LIST changes: +ACET-66 PO
[2022-01-14 13:53] LABS: BASOPHILS % (AUTO) 0.5 % (0.0-5.0); EOSINOPHILS % (AUTO) 1.9 % (0.0-8.0); LYMPHOCYTES % (AUTO) 22.6 % (21.0-51.0); MEAN CORPUSCULAR HEMOGLOBIN 28.8 pg (27.0-33.0); MEAN CORPUSCULAR HGB CONC 33.1 g/dL (32.0-36.0); MEAN CORPUSCULAR VOLUME 86.8 fL (79-99); MONOCYTES % (AUTO) 4.5 % (3.0-13.0); NEUTROPHILS % (AUTO) 70.2 % (40.0-77.0); PLATELET COUNT (AUTO) 203 K/uL (130-400); RED BLOOD CELL COUNT(AUTO) 4.03 MIL/uL (4.00-5.50); RED CELL DISTRIBUTION WIDTH 14.5 % (11.0-15.5); WHITE BLOOD COUNT (AUTO) 8.6 K/uL (4.8-10.8)
[2022-01-14 14:02] LABS: CARBON DIOXIDE 30 mmol/L (21-32); CHLORIDE 103 mmol/L (101-111); CREATININE 0.9 mg/dL (0.5-1.5); GLOMERULAR FILTR. RATE CALC 75 mL/min (>60); GLUCOSE,RANDOM 129 mg/dL (70-105); POTASSIUM 3.4 mmol/L (3.5-5.1); SODIUM SERUM 138 mmol/L (136-145); UREA NITROGEN, BLOOD 8 mg/dL (7-18)
[2022-01-14 14:07] LABS: ALANINE AMINOTRANSFERASE 36 U/L (12-78); ALBUMIN 2.9 g/dL (3.5-5.0); AMYLASE 25 U/L (25-115); ASPARTATE AMINOTRANSFERASE 20 U/L (10-37); CREATINE KINASE, TOTAL 51 U/L (21-232); TOTAL PROTEIN, SERUM 7.3 g/dL (6.0-8.3)
[2022-01-14 14:18] LABS: LIPASE < 50 U/L (114-286)
[2022-01-14 14:40] LABS: APPEARANCE,URINE CLEAR (CLEAR); BILIRUBIN,URINE NEGATIVE (NEGATIVE); COLOR,URINE YELLOW (YELLOW); GLUCOSE, URINE (UA) NEGATIVE (NEGATIVE); KETONES,URINE 5 mg/dL (NEGATIVE); LEUKOCYTE ESTERASE ,URINE 25 Leu/uL (NEGATIVE); NITRATE,URINE NEGATIVE (NEGATIVE); OCCULT BLOOD,URINE NEGATIVE (NEGATIVE); PROTEIN,URINE 30 mg/dL (NEGATIVE); UROBILINOGEN,URINE >=8.0 mg/dL (0.2-1.0)
[2022-01-14 14:42] LABS: MUCUS,URINE RARE LPF (None Seen); SQUAMOUS EPITHELIAL CELL,UR FEW /HPF (0-2)
[2022-01-14 14:51] LABS: HCG,QUALITATIVE URINE NEGATIVE (NEGATIVE)
[2022-01-14] MEDS ORDERED: AMOX1TAB16 PO (15:50)
[2022-01-14 16:03] VITALS: BP 139/89
== END 2022-01-14 16:05 | disposition home or self-care (01) ==
LOC: EDH 12:25
DX: R10.31 Right lower quadrant pain (principal); R10.32 Left lower quadrant pain; E11.9 Type 2 diabetes mellitus without complications; I10 Essential (primary) hypertension; I50.9 Heart failure, unspecified; J45.909 Unspecified asthma, uncomplicated; F32.A Depression, unspecified; Z79.899 Other long term (current) drug therapy
CPT/HCPCS: 36415; 74176; 80053; 81001; 81025; 82150; 82550; 83690; 85025

== ENCOUNTER 2022-04-07 16:16 | Emergency (ER) | payer MEDICAID ==
[~2022-04-07] VITALS: Ht 180.3 cm; Wt 169.2 kg
[~2022-04-07 16:16] MED LIST changes: +AMOX1TAB16 PO
[2022-04-07 17:08] LABS: BASOPHILS % (AUTO) 0.3 % (0.0-5.0); EOSINOPHILS % (AUTO) 1.9 % (0.0-8.0); HEMATOCRIT 42.9 % (36-48); LYMPHOCYTES % (AUTO) 19.7 % (21.0-51.0); MEAN CORPUSCULAR HEMOGLOBIN 28.7 pg (27.0-33.0); MEAN CORPUSCULAR HGB CONC 33.6 g/dL (32.0-36.0); MEAN CORPUSCULAR VOLUME 85.6 fL (79-99); MONOCYTES % (AUTO) 3.8 % (3.0-13.0); PLATELET COUNT (AUTO) 288 K/uL (130-400); RED BLOOD CELL COUNT(AUTO) 5.01 MIL/uL (4.00-5.50); RED CELL DISTRIBUTION WIDTH 13.7 % (11.0-15.5); WHITE BLOOD COUNT (AUTO) 14.4 K/uL (4.8-10.8)
[2022-04-07 17:19] LABS: CREATININE 1.1 mg/dL (0.5-1.5); POTASSIUM 4.1 mmol/L (3.5-5.1)
[2022-04-07 17:24] LABS: ALBUMIN 3.9 g/dL (3.5-5.0); TOTAL PROTEIN, SERUM 8.4 g/dL (6.0-8.3)
[2022-04-07] MEDS ORDERED: KETOROLAC 30MG VIAL (30MG/ML) IVP ONE (19:00)
[2022-04-07] MEDS ORDERED: ONDANSETRON 4MG TABLET PO ONE (19:00)
[2022-04-07] MEDS ORDERED: 0.9%NACL 1000ML 1,000 ML IV ONE (19:00)
[2022-04-07] MEDS ORDERED: DICYCLOMINE 20MG (10MG/ML) AMP IM ONE (19:00)
[2022-04-07] MEDS ORDERED: ACETAMINOPHEN 325 MG TAB PO ONE ×2 (19:00)
[2022-04-07] MEDS ORDERED: PANTOPRAZOLE 40 MG/VIAL IVP ONE (19:00)
[2022-04-07] MEDS ORDERED: LIDOCAINE HCL 2% VISCOUS 15 ML UDCUP PO ONE (19:00)
[2022-04-07 19:20] LABS: APPEARANCE,URINE CLOUDY (CLEAR); BILIRUBIN,URINE NEGATIVE (NEGATIVE); COLOR,URINE LIGHT-YELLOW (YELLOW); GLUCOSE, URINE (UA) NEGATIVE (NEGATIVE); KETONES,URINE NEGATIVE (NEGATIVE); LEUKOCYTE ESTERASE ,URINE 25 Leu/uL (NEGATIVE); NITRATE,URINE NEGATIVE (NEGATIVE); OCCULT BLOOD,URINE MODERATE (NEGATIVE); PH,URINE 5.5 (5.0-8.0); PROTEIN,URINE 20 mg/dL (NEGATIVE); UROBILINOGEN,URINE 0.2 mg/dL (0.2-1.0)
[2022-04-07 19:25] LABS: BACTERIA,URINE RARE /HPF (None Seen); MUCUS,URINE RARE LPF (None Seen); SQUAMOUS EPITHELIAL CELL,UR FEW /HPF (0-2); YEAST,URINE BUDDING RARE /HPF (None Seen)
[2022-04-07] MEDS ORDERED: DICY20TA2 PO (22:04)
[2022-04-07] MEDS ORDERED: PANT40TA54 PO (22:04)
[2022-04-07] MEDS ORDERED: AMOX-426 PO (22:04)
[2022-04-07] MEDS ORDERED: ONDA-104 PO (22:04)
[2022-04-07] MEDS ORDERED: ACET-66 PO (22:04)
[2022-04-07 22:18] VITALS: BP 137/69
[2022-04-14] MEDS ORDERED: AMOX500C2 PO (15:50)
[2022-04-14] MEDS ORDERED: ACET-66 PO (15:50)
== END 2022-04-07 22:18 | disposition home or self-care (01) ==
LOC: EDH 16:16
DX: N39.0 Urinary tract infection, site not specified (principal); K52.9 Noninfective gastroenteritis and colitis, unspecified; N28.1 Cyst of kidney, acquired; F32.A Depression, unspecified; F41.9 Anxiety disorder, unspecified; J45.909 Unspecified asthma, uncomplicated; I11.0 Hypertensive heart disease with heart failure; E11.9 Type 2 diabetes mellitus without complications; F17.200 Nicotine dependence, unspecified, uncomplicated; Z79.1 Long term (current) use of non-steroidal anti-inflammatories (NSAID); Z79.84 Long term (current) use of oral hypoglycemic drugs; Z79.899 Other long term (current) drug therapy
CPT/HCPCS: 99285; 74176; 96374; 96361; 96375; 80053; 83690; 85025; 87088; 81001; 81025; 36415; J1885; S0164; C9113

== ENCOUNTER 2022-06-08 23:44 | Emergency (ER) | payer BC, MEDICAID ==
[~2022-06-08 23:44] MED LIST changes: +AMOX-426 PO; +AMOX500C2 PO
[2022-06-08 23:47] VITALS: BP 141/92
[2022-06-09] MEDS ORDERED: 0.9%NACL 1000ML 1,000 ML IV ONE
[2022-06-09] MEDS ORDERED: ONDANSETRON 4MG INJ IVP ONE
[2022-06-09 00:20] LABS: APPEARANCE,URINE TURBID (CLEAR); BILIRUBIN,URINE NEGATIVE (NEGATIVE); COLOR,URINE YELLOW (YELLOW); GLUCOSE, URINE (UA) NEGATIVE (NEGATIVE); KETONES,URINE NEGATIVE (NEGATIVE); LEUKOCYTE ESTERASE ,URINE 250 Leu/uL (NEGATIVE); NITRATE,URINE NEGATIVE (NEGATIVE); OCCULT BLOOD,URINE LARGE (NEGATIVE); PH,URINE 5.5 (5.0-8.0); PROTEIN,URINE 100 mg/dL (NEGATIVE)
[2022-06-09 00:23] LABS: BACTERIA,URINE MANY /HPF (None Seen); MUCUS,URINE FEW LPF (None Seen); RBC,URINE 26-50 /HPF (0-1); SQUAMOUS EPITHELIAL CELL,UR MOD /HPF (0-2)
[2022-06-09 00:28] LABS: POTASSIUM 3.6 mmol/L (3.5-5.1)
[2022-06-09 00:33] LABS: ALBUMIN 3.6 g/dL (3.5-5.0)
[2022-06-09 00:41] LABS: BASOPHILS % (AUTO) 0.4 % (0.0-5.0); EOSINOPHILS % (AUTO) 2.2 % (0.0-8.0); HEMATOCRIT 41.5 % (36-48); MEAN CORPUSCULAR HEMOGLOBIN 28.8 pg (27.0-33.0); MEAN CORPUSCULAR VOLUME 84.9 fL (79-99); MONOCYTES % (AUTO) 5.5 % (3.0-13.0); NEUTROPHILS % (AUTO) 58.7 % (40.0-77.0); PLATELET COUNT (AUTO) 291 K/uL (130-400); RED BLOOD CELL COUNT(AUTO) 4.89 MIL/uL (4.00-5.50); RED CELL DISTRIBUTION WIDTH 13.3 % (11.0-15.5); WHITE BLOOD COUNT (AUTO) 10.3 K/uL (4.8-10.8)
[2022-06-09] MEDS ORDERED: IBUP-2071 PO (00:45)
[2022-06-09] MEDS ORDERED: SULF1TAB42 PO (00:45)
[2022-06-09] MEDS ORDERED: CEFTRIAXONE 1G VIAL IVPB ONE (01:00)
[2022-06-09] MEDS ORDERED: ONDANSETRON 4MG INJ IV ONE (01:00)
== END 2022-06-09 01:13 | disposition home or self-care (01) ==
LOC: EDH 23:44
DX: N39.0 Urinary tract infection, site not specified (principal); J45.909 Unspecified asthma, uncomplicated; E11.9 Type 2 diabetes mellitus without complications; F17.200 Nicotine dependence, unspecified, uncomplicated; I11.0 Hypertensive heart disease with heart failure; I50.9 Heart failure, unspecified; Z79.1 Long term (current) use of non-steroidal anti-inflammatories (NSAID); Z79.84 Long term (current) use of oral hypoglycemic drugs; Z79.899 Other long term (current) drug therapy
CPT/HCPCS: 99284; 80053; 83690; 85025; 87088; 81001; 81025; 36415; 96374; 96375; 96376; J7030; J0696; J2405 ×2

== ENCOUNTER 2022-06-11 09:03 | Emergency (ER) | payer BC, MEDICAID ==
[~2022-06-11] VITALS: Ht 182.9 cm; Wt 127.9 kg
[~2022-06-11 09:03] MED LIST changes: +IBUP-2071 PO; +SULF1TAB42 PO
[2022-06-11 09:38] LABS: BASOPHILS % (AUTO) 0.6 % (0.0-5.0); EOSINOPHILS % (AUTO) 1.8 % (0.0-8.0); HEMATOCRIT 42.2 % (36-48); LYMPHOCYTES % (AUTO) 25.9 % (21.0-51.0); MEAN CORPUSCULAR HGB CONC 33.6 g/dL (32.0-36.0); MEAN CORPUSCULAR VOLUME 86.3 fL (79-99); MONOCYTES % (AUTO) 3.6 % (3.0-13.0); NEUTROPHILS % (AUTO) 67.9 % (40.0-77.0); PLATELET COUNT (AUTO) 279 K/uL (130-400); RED BLOOD CELL COUNT(AUTO) 4.89 MIL/uL (4.00-5.50); RED CELL DISTRIBUTION WIDTH 13.2 % (11.0-15.5); WHITE BLOOD COUNT (AUTO) 8.9 K/uL (4.8-10.8)
[2022-06-11 09:45] LABS: CREATININE 0.9 mg/dL (0.5-1.5); POTASSIUM 3.9 mmol/L (3.5-5.1)
[2022-06-11 09:50] LABS: ALBUMIN 3.7 g/dL (3.5-5.0); TOTAL PROTEIN, SERUM 8.6 g/dL (6.0-8.3)
[2022-06-11] MEDS ORDERED: METR-172 PO (09:59)
[2022-06-11] MEDS ORDERED: SULF1TAB42 PO (09:59)
[2022-06-11 10:00] LABS: APPEARANCE,URINE CLEAR (CLEAR); BILIRUBIN,URINE NEGATIVE (NEGATIVE); COLOR,URINE COLORLESS (YELLOW); GLUCOSE, URINE (UA) NEGATIVE (NEGATIVE); KETONES,URINE NEGATIVE (NEGATIVE); LEUKOCYTE ESTERASE ,URINE NEGATIVE Leu/uL (NEGATIVE); NITRATE,URINE NEGATIVE (NEGATIVE); OCCULT BLOOD,URINE SMALL (NEGATIVE); PH,URINE 5.5 (5.0-8.0); PROTEIN,URINE NEGATIVE (NEGATIVE); UROBILINOGEN,URINE 0.2 mg/dL (0.2-1.0)
[2022-06-11 10:05] LABS: HCG,QUALITATIVE URINE NEGATIVE (NEGATIVE)
[2022-06-11 10:10] VITALS: BP 128/72
[2022-06-11 10:11] LABS: BACTERIA,URINE RARE /HPF (None Seen); SQUAMOUS EPITHELIAL CELL,UR RARE /HPF (0-2)
== END 2022-06-11 10:38 | disposition home or self-care (01) ==
LOC: EDH 09:03
DX: R10.32 Left lower quadrant pain (principal); N39.0 Urinary tract infection, site not specified; I11.0 Hypertensive heart disease with heart failure; I50.9 Heart failure, unspecified; E11.9 Type 2 diabetes mellitus without complications; F17.200 Nicotine dependence, unspecified, uncomplicated; J45.909 Unspecified asthma, uncomplicated; Z79.84 Long term (current) use of oral hypoglycemic drugs; Z79.899 Other long term (current) drug therapy; Z98.890 Other specified postprocedural states
CPT/HCPCS: 36415; 80053; 81001; 81025; 83690; 85025

== ENCOUNTER 2022-07-07 17:39 | Emergency (ER) | payer BC, MEDICAID ==
[~2022-07-07] VITALS: Ht 180.3 cm; Wt 167.8 kg
[2022-07-07 18:15] LABS: BASOPHILS % (AUTO) 0.6 % (0.0-5.0); EOSINOPHILS % (AUTO) 2.4 % (0.0-8.0); HEMATOCRIT 39.6 % (36-48); LYMPHOCYTES % (AUTO) 39.4 % (21.0-51.0); MEAN CORPUSCULAR HEMOGLOBIN 29.5 pg (27.0-33.0); MEAN CORPUSCULAR HGB CONC 34.6 g/dL (32.0-36.0); MEAN CORPUSCULAR VOLUME 85.2 fL (79-99); MONOCYTES % (AUTO) 5.7 % (3.0-13.0); NEUTROPHILS % (AUTO) 51.5 % (40.0-77.0); PLATELET COUNT (AUTO) 232 K/uL (130-400); RED BLOOD CELL COUNT(AUTO) 4.65 MIL/uL (4.00-5.50); RED CELL DISTRIBUTION WIDTH 13.5 % (11.0-15.5); WHITE BLOOD COUNT (AUTO) 8.2 K/uL (4.8-10.8)
[2022-07-07 18:29] LABS: ALBUMIN 3.4 g/dL (3.5-5.0); CREATININE 0.7 mg/dL (0.5-1.5); POTASSIUM 3.7 mmol/L (3.5-5.1); TOTAL PROTEIN, SERUM 7.9 g/dL (6.0-8.3)
[2022-07-07] MEDS ORDERED: ACETAMINOPHEN 500 MG TABLET PO ONE (18:30)
[2022-07-07 19:39] LABS: APPEARANCE,URINE CLEAR (CLEAR); BILIRUBIN,URINE NEGATIVE (NEGATIVE); COLOR,URINE YELLOW (YELLOW); GLUCOSE, URINE (UA) NEGATIVE (NEGATIVE); KETONES,URINE NEGATIVE (NEGATIVE); LEUKOCYTE ESTERASE ,URINE NEGATIVE Leu/uL (NEGATIVE); NITRATE,URINE NEGATIVE (NEGATIVE); OCCULT BLOOD,URINE SMALL (NEGATIVE); PROTEIN,URINE NEGATIVE (NEGATIVE); UROBILINOGEN,URINE 0.2 mg/dL (0.2-1.0)
[2022-07-07 20:06] LABS: BACTERIA,URINE Few /HPF (None Seen); SQUAMOUS EPITHELIAL CELL,UR Few /HPF (0-2); WBC,URINE 0-1 /HPF (0-1)
[2022-07-07 20:47] VITALS: BP 132/84
== END 2022-07-07 21:12 | disposition home or self-care (01) ==
LOC: EDH 17:39
DX: R07.89 Other chest pain (principal); R06.02 Shortness of breath; R11.0 Nausea; E11.9 Type 2 diabetes mellitus without complications; E78.00 Pure hypercholesterolemia, unspecified; F17.200 Nicotine dependence, unspecified, uncomplicated; I10 Essential (primary) hypertension; J45.909 Unspecified asthma, uncomplicated; Z79.84 Long term (current) use of oral hypoglycemic drugs; Z79.899 Other long term (current) drug therapy; Z98.890 Other specified postprocedural states; Z90.89 Acquired absence of other organs
CPT/HCPCS: 36415; 71045; 80053; 81001; 84484; 85025; 93005

== ENCOUNTER → 2022-07-12 | Emergency (ER) | payer BC, MEDICAID ==
[~2022-07-12] VITALS: Ht 180.3 cm; Wt 171.5 kg
[~2022-07-12] MED LIST changes: +PENICILLIN G BENZATHINE LA 1.2 MILUNITS/2 ML SYG IM ONE
[2022-07-12 23:18] VITALS: BP 137/89
[2022-07-13 00:06] LABS: APPEARANCE,URINE CLEAR (CLEAR); BILIRUBIN,URINE NEGATIVE (NEGATIVE); COLOR,URINE LIGHT-YELLOW (YELLOW); GLUCOSE, URINE (UA) NEGATIVE (NEGATIVE); KETONES,URINE NEGATIVE (NEGATIVE); LEUKOCYTE ESTERASE ,URINE 75 Leu/uL (NEGATIVE); NITRATE,URINE NEGATIVE (NEGATIVE); OCCULT BLOOD,URINE NEGATIVE (NEGATIVE); PH,URINE 5.5 (5.0-8.0); PROTEIN,URINE NEGATIVE (NEGATIVE); UROBILINOGEN,URINE 0.2 mg/dL (0.2-1.0)
[2022-07-13 00:09] LABS: SQUAMOUS EPITHELIAL CELL,UR FEW /HPF (0-2)
[2022-07-13 00:12] LABS: AMPHET/METH SCREEN,URINE NEGATIVE (NEGATIVE); BARBITURATE SCREEN, URINE NEGATIVE (NEGATIVE); BENZODIAZEPINES SCREEN,URINE NEGATIVE (NEGATIVE); CANNABINOID SCREEN,URINE NEGATIVE (NEGATIVE); COCAINE SCREEN,URINE NEGATIVE (NEGATIVE); OPIATE SCREEN,URINE NEGATIVE (NEGATIVE); PHENCYCLIDINE SCREEN,URINE NEGATIVE (NEGATIVE)
[2022-07-13 00:24] LABS: CARBON DIOXIDE 27 mmol/L (21-32); CHLORIDE 102 mmol/L (101-111); CREATININE 0.9 mg/dL (0.5-1.5); GLOMERULAR FILTR. RATE CALC 85 mL/min (>90); GLUCOSE,RANDOM 128 mg/dL (70-105); POTASSIUM 3.4 mmol/L (3.5-5.1); SODIUM SERUM 138 mmol/L (136-145); UREA NITROGEN, BLOOD 13 mg/dL (7-18)
[2022-07-13 00:29] LABS: ALANINE AMINOTRANSFERASE 43 U/L (12-78); ALBUMIN 3.6 g/dL (3.5-5.0); ASPARTATE AMINOTRANSFERASE 20 U/L (10-37); CREATINE KINASE, TOTAL 92 U/L (21-232)
[2022-07-13 00:36] LABS: ACETAMINOPHEN < 1 mcg/mL (10-30); SALICYLATE < 2.8 mg/dL (2.8-20.0)
[2022-07-13 00:41] LABS: BASOPHILS % (AUTO) 0.8 % (0.0-5.0); EOSINOPHILS % (AUTO) 2.9 % (0.0-8.0); HEMATOCRIT 40.4 % (36-48); LYMPHOCYTES % (AUTO) 39.1 % (21.0-51.0); MEAN CORPUSCULAR HEMOGLOBIN 29.4 pg (27.0-33.0); MEAN CORPUSCULAR HGB CONC 34.4 g/dL (32.0-36.0); MEAN CORPUSCULAR VOLUME 85.4 fL (79-99); MONOCYTES % (AUTO) 6.3 % (3.0-13.0); NEUTROPHILS % (AUTO) 50.6 % (40.0-77.0); PLATELET COUNT (AUTO) 262 K/uL (130-400); RED BLOOD CELL COUNT(AUTO) 4.73 MIL/uL (4.00-5.50); RED CELL DISTRIBUTION WIDTH 13.3 % (11.0-15.5)
== END ==
LOC: EDH 23:17
DX: R45.851 Suicidal ideations (principal); F41.9 Anxiety disorder, unspecified; J45.909 Unspecified asthma, uncomplicated; F17.200 Nicotine dependence, unspecified, uncomplicated; I10 Essential (primary) hypertension; E11.9 Type 2 diabetes mellitus without complications; Z79.84 Long term (current) use of oral hypoglycemic drugs; Z79.899 Other long term (current) drug therapy
CPT/HCPCS: 99283; 82550; 80053; 80305; 84703; 85025; 87088; 81001; 36415; G0481

== ENCOUNTER 2022-10-13 03:29 | Emergency (ER) | payer BC, MEDICAID ==
[~2022-10-13 03:29] MED LIST changes: -PENICILLIN G BENZATHINE LA 1.2 MILUNITS/2 ML SYG IM ONE
[2022-10-13 04:00] LABS: BASOPHILS # (AUTO) 0.06 K/uL (0.00-0.20); BASOPHILS % (AUTO) 0.7 % (0.0-5.0); EOSINOPHILS # (AUTO) 0.22 K/uL (0.00-0.70); EOSINOPHILS % (AUTO) 2.7 % (0.0-8.0); HEMATOCRIT 38.4 % (36-48); IMMATURE GRANULOCYTE ABSOLUTE 0.03 K/uL (0-1); LYMPHOCYTES # (AUTO) 3.2 K/uL (1.0-4.8); LYMPHOCYTES % (AUTO) 39.3 % (21.0-51.0); MEAN CORPUSCULAR HEMOGLOBIN 29.1 pg (27.0-33.0); MEAN CORPUSCULAR HGB CONC 34.1 g/dL (32.0-36.0); MEAN CORPUSCULAR VOLUME 85.3 fL (79-99); MONOCYTES # (AUTO) 0.5 K/uL (0.1-1.0); MONOCYTES % (AUTO) 6.5 % (3.0-13.0); NEUTROPHILS % (AUTO) 50.4 % (40.0-77.0); PLATELET COUNT (AUTO) 238 K/uL (130-400); RED CELL DISTRIBUTION WIDTH 13.6 % (11.0-15.5)
[2022-10-13 04:13] LABS: CARBON DIOXIDE 24 mmol/L (21-32); CHLORIDE 98 mmol/L (101-111); CREATININE 0.8 mg/dL (0.5-1.5); GLOMERULAR FILTR. RATE CALC 98 mL/min (>90); GLUCOSE,RANDOM 134 mg/dL (70-105); POTASSIUM 3.6 mmol/L (3.5-5.1); SODIUM SERUM 134 mmol/L (136-145); UREA NITROGEN, BLOOD 18 mg/dL (7-18)
[2022-10-13 04:18] LABS: ACETAMINOPHEN < 1 mcg/mL (10-30); ALANINE AMINOTRANSFERASE 37 U/L (12-78); ALBUMIN 3.5 g/dL (3.5-5.0); ALCOHOL, BLOOD 183 mg/dL (0-10); ASPARTATE AMINOTRANSFERASE 22 U/L (10-37); BILIRUBIN,TOTAL 0.2 mg/dL (0.2-1.0); SALICYLATE < 2.8 mg/dL (2.8-20.0); TOTAL PROTEIN, SERUM 7.6 g/dL (6.0-8.3)
[2022-10-13] MEDS ORDERED: METOCLOPRAMIDE 10 MG/2 ML VIAL IVP ONE (04:30)
[2022-10-13] MEDS ORDERED: FAMOTIDINE 20MG VIAL IV ONE (04:30)
[2022-10-13] MEDS ORDERED: M.V.I. IV [ADULT] 10 ML VIAL IV ONE (04:52)
[2022-10-13] MEDS ORDERED: THIAMINE HCL 100 MG/ML 2ML VIAL ONE (04:53)
[2022-10-13] MEDS ORDERED: FOLIC ACID 1 MG TABLET ONE (04:54)
[2022-10-13] MEDS ORDERED: M.V.I. IV [ADULT] 10 ML, FOLIC ACID 1 MG, THIAMINE HCL 100 MG in 0.9%NACL 1000ML 1,000 ML IV ONE (05:00)
[2022-10-13 08:23] LABS: AMPHET/METH SCREEN,URINE NEGATIVE (NEGATIVE); BARBITURATE SCREEN, URINE NEGATIVE (NEGATIVE); BENZODIAZEPINES SCREEN,URINE NEGATIVE (NEGATIVE); CANNABINOID SCREEN,URINE NEGATIVE (NEGATIVE); COCAINE SCREEN,URINE POSITIVE (NEGATIVE); OPIATE SCREEN,URINE NEGATIVE (NEGATIVE); PHENCYCLIDINE SCREEN,URINE NEGATIVE (NEGATIVE)
[2022-10-13 08:52] LABS: APPEARANCE,URINE CLEAR (CLEAR); BILIRUBIN,URINE NEGATIVE (NEGATIVE); COLOR,URINE COLORLESS (YELLOW); GLUCOSE, URINE (UA) NEGATIVE (NEGATIVE); KETONES,URINE NEGATIVE (NEGATIVE); LEUKOCYTE ESTERASE ,URINE NEGATIVE Leu/uL (NEGATIVE); NITRATE,URINE NEGATIVE (NEGATIVE); OCCULT BLOOD,URINE NEGATIVE (NEGATIVE); PH,URINE 5.5 (5.0-8.0); PROTEIN,URINE NEGATIVE (NEGATIVE); UROBILINOGEN,URINE 0.2 mg/dL (0.2-1.0)
[2022-10-13 08:53] LABS: ADD UA MICROSCOPIC NO
[2022-10-13 11:13] VITALS: BP 135/52; PULSE 87; RESP 19; O2SAT 97
== END 2022-10-13 11:14 | disposition home or self-care (01) ==
LOC: EDH 03:29
DX: F10.129 Alcohol abuse with intoxication, unspecified (principal); F14.10 Cocaine abuse, uncomplicated; I10 Essential (primary) hypertension; E11.9 Type 2 diabetes mellitus without complications; F31.9 Bipolar disorder, unspecified; J45.909 Unspecified asthma, uncomplicated; F41.9 Anxiety disorder, unspecified; Y90.6 Blood alcohol level of 120-199 mg/100 ml
CPT/HCPCS: 99284; 96366; 96365; 96375; 80053; 80305; 85025; 36415; 81003; J3490; J3411; J2765; G0481

== ENCOUNTER 2022-10-13 21:54 | Emergency (ER) | payer BC, MEDICAID | END 2022-10-13 23:32 | disposition left against medical advice (07) | LOC: EDH 21:54 | DX: Z04.6 Encounter for general psychiatric examination, requested by authority (principal); Z53.21 Procedure and treatment not carried out due to patient leaving prior to being seen by health care provider ==

== ENCOUNTER 2022-11-17 03:22 | Emergency (ER) | payer BC, MEDICAID ==
[2022-11-17] MEDS ORDERED: HYDROXYZINE 25 MG TABLET PO ONE (04:00)
[2022-11-17] MEDS ORDERED: HYDROXYZINE 25 MG TABLET ONE (04:02)
[2022-11-17 04:23] LABS: BASOPHILS # (AUTO) 0.05 K/uL (0.00-0.20); BASOPHILS % (AUTO) 0.8 % (0.0-5.0); EOSINOPHILS # (AUTO) 0.18 K/uL (0.00-0.70); EOSINOPHILS % (AUTO) 2.9 % (0.0-8.0); HEMATOCRIT 41.7 % (36-48); IMMATURE GRANULOCYTE ABSOLUTE 0.01 K/uL (0-1); LYMPHOCYTES # (AUTO) 2.3 K/uL (1.0-4.8); LYMPHOCYTES % (AUTO) 37.4 % (21.0-51.0); MEAN CORPUSCULAR HEMOGLOBIN 29.4 pg (27.0-33.0); MEAN CORPUSCULAR HGB CONC 34.3 g/dL (32.0-36.0); MEAN CORPUSCULAR VOLUME 85.8 fL (79-99); MONOCYTES # (AUTO) 0.3 K/uL (0.1-1.0); NEUTROPHILS # (AUTO) 3.3 K/uL (1.8-7.7); NEUTROPHILS % (AUTO) 53.7 % (40.0-77.0); PLATELET COUNT (AUTO) 230 K/uL (130-400); RED BLOOD CELL COUNT(AUTO) 4.86 MIL/uL (4.00-5.50); RED CELL DISTRIBUTION WIDTH 13.8 % (11.0-15.5); WHITE BLOOD COUNT (AUTO) 6.2 K/uL (4.8-10.8)
[2022-11-17 04:41] LABS: CARBON DIOXIDE 27 mmol/L (21-32); CHLORIDE 103 mmol/L (101-111); CREATININE 0.9 mg/dL (0.5-1.5); GLOMERULAR FILTR. RATE CALC 85 mL/min (>90); GLUCOSE,RANDOM 117 mg/dL (70-105); POTASSIUM 3.8 mmol/L (3.5-5.1); SODIUM SERUM 140 mmol/L (136-145); UREA NITROGEN, BLOOD 24 mg/dL (7-18)
[2022-11-17 04:44] LABS: APPEARANCE,URINE CLEAR (CLEAR); BILIRUBIN,URINE NEGATIVE (NEGATIVE); COLOR,URINE LIGHT-YELLOW (YELLOW); GLUCOSE, URINE (UA) NEGATIVE (NEGATIVE); KETONES,URINE NEGATIVE (NEGATIVE); LEUKOCYTE ESTERASE ,URINE NEGATIVE Leu/uL (NEGATIVE); NITRATE,URINE NEGATIVE (NEGATIVE); OCCULT BLOOD,URINE NEGATIVE (NEGATIVE); PH,URINE 5.5 (5.0-8.0); PROTEIN,URINE 10 mg/dL (NEGATIVE); UROBILINOGEN,URINE 0.2 mg/dL (0.2-1.0)
[2022-11-17 04:46] VITALS: BP 113/50; PULSE 79; RESP 18; O2SAT 95
[2022-11-17 04:46] LABS: ADD UA MICROSCOPIC YES
[2022-11-17 04:47] LABS: MUCUS,URINE RARE LPF (None Seen); RBC,URINE 0-1 /HPF (0-1); WBC,URINE 0-1 /HPF (0-1)
[2022-11-17 04:47] LABS: ALANINE AMINOTRANSFERASE 48 U/L (12-78); ALBUMIN 3.6 g/dL (3.5-5.0); ALCOHOL, BLOOD 6 mg/dL (0-10); ASPARTATE AMINOTRANSFERASE 22 U/L (10-37); BILIRUBIN,TOTAL 0.4 mg/dL (0.2-1.0); TOTAL PROTEIN, SERUM 8.2 g/dL (6.0-8.3)
[2022-11-17 04:48] LABS: HCG,QUALITATIVE URINE NEGATIVE (NEGATIVE)
[2022-11-17 04:50] LABS: ACETAMINOPHEN < 1 mcg/mL (10-30); SALICYLATE < 2.8 mg/dL (2.8-20.0)
[2022-11-17 04:51] LABS: AMPHET/METH SCREEN,URINE NEGATIVE (NEGATIVE); BARBITURATE SCREEN, URINE NEGATIVE (NEGATIVE); BENZODIAZEPINES SCREEN,URINE NEGATIVE (NEGATIVE); CANNABINOID SCREEN,URINE NEGATIVE (NEGATIVE); COCAINE SCREEN,URINE NEGATIVE (NEGATIVE); OPIATE SCREEN,URINE NEGATIVE (NEGATIVE); PHENCYCLIDINE SCREEN,URINE NEGATIVE (NEGATIVE)
== END 2022-11-17 08:59 | disposition home or self-care (01) ==
LOC: EDH 03:22
DX: F32.A Depression, unspecified (principal); E11.9 Type 2 diabetes mellitus without complications; F41.9 Anxiety disorder, unspecified; I10 Essential (primary) hypertension; J45.909 Unspecified asthma, uncomplicated; F17.200 Nicotine dependence, unspecified, uncomplicated; Z79.84 Long term (current) use of oral hypoglycemic drugs; Z79.899 Other long term (current) drug therapy
CPT/HCPCS: 99283; 80053; 80305; 85025; 81001; 81025; 36415; G0481

== ENCOUNTER 2022-11-28 17:41 | Emergency (ER) | payer BC, MEDICAID ==
[~2022-11-28] VITALS: Ht 180.3 cm; Wt 174.2 kg
[2022-11-28 17:42] VITALS: BP 133/83; PULSE 106; RESP 22
[2022-11-28 18:43] LABS: HEMATOCRIT 40.4 % (36-48); MEAN CORPUSCULAR HEMOGLOBIN 29.4 pg (27.0-33.0); MEAN CORPUSCULAR HGB CONC 34.4 g/dL (32.0-36.0); MEAN CORPUSCULAR VOLUME 85.6 fL (79-99); RED BLOOD CELL COUNT(AUTO) 4.72 MIL/uL (4.00-5.50); RED CELL DISTRIBUTION WIDTH 13.2 % (11.0-15.5); WHITE BLOOD COUNT (AUTO) 7.9 K/uL (4.8-10.8)
[2022-11-28 18:50] LABS: APPEARANCE,URINE CLEAR (CLEAR); BILIRUBIN,URINE NEGATIVE (NEGATIVE); COLOR,URINE LIGHT-YELLOW (YELLOW); GLUCOSE, URINE (UA) NEGATIVE (NEGATIVE); KETONES,URINE NEGATIVE (NEGATIVE); LEUKOCYTE ESTERASE ,URINE NEGATIVE Leu/uL (NEGATIVE); NITRATE,URINE NEGATIVE (NEGATIVE); OCCULT BLOOD,URINE NEGATIVE (NEGATIVE); PROTEIN,URINE NEGATIVE (NEGATIVE); UROBILINOGEN,URINE 0.2 mg/dL (0.2-1.0)
[2022-11-28 18:52] LABS: ADD UA MICROSCOPIC YES
[2022-11-28 18:54] LABS: BACTERIA,URINE RARE /HPF (None Seen); MUCUS,URINE RARE LPF (None Seen); RBC,URINE 0-1 /HPF (0-1); SQUAMOUS EPITHELIAL CELL,UR FEW /HPF (0-2); YEAST,URINE BUDDING RARE /HPF (None Seen)
[2022-11-28 18:55] LABS: CREATININE 1.1 mg/dL (0.5-1.5); POTASSIUM 3.8 mmol/L (3.5-5.1)
[2022-11-28 19:00] LABS: ALBUMIN 3.6 g/dL (3.5-5.0); BILIRUBIN,TOTAL 0.3 mg/dL (0.2-1.0); TOTAL PROTEIN, SERUM 8.1 g/dL (6.0-8.3)
== END 2022-11-28 20:27 | disposition left against medical advice (07) ==
LOC: EDH 17:41
DX: R30.9 Painful micturition, unspecified (principal); Z53.21 Procedure and treatment not carried out due to patient leaving prior to being seen by health care provider
CPT/HCPCS: 36415; 80053; 81001; 85027

== ENCOUNTER 2022-11-29 21:58 | Emergency (ER) | payer BC, MEDICAID ==
[2022-11-29 22:25] LABS: APPEARANCE,URINE CLOUDY (CLEAR); BILIRUBIN,URINE NEGATIVE (NEGATIVE); COLOR,URINE YELLOW (YELLOW); GLUCOSE, URINE (UA) 30 mg/dL (NEGATIVE); KETONES,URINE NEGATIVE (NEGATIVE); LEUKOCYTE ESTERASE ,URINE NEGATIVE Leu/uL (NEGATIVE); NITRATE,URINE NEGATIVE (NEGATIVE); OCCULT BLOOD,URINE SMALL (NEGATIVE); PH,URINE 5.5 (5.0-8.0); PROTEIN,URINE 10 mg/dL (NEGATIVE)
[2022-11-29 22:30] LABS: HCG,QUALITATIVE URINE NEGATIVE (NEGATIVE)
[2022-11-29 22:31] LABS: ADD UA MICROSCOPIC YES
[2022-11-29 22:32] LABS: BACTERIA,URINE RARE /HPF (None Seen); MUCUS,URINE RARE LPF (None Seen); SQUAMOUS EPITHELIAL CELL,UR RARE /HPF (0-2)
[2022-11-29 22:57] LABS: BASOPHILS # (AUTO) 0.05 K/uL (0.00-0.20); BASOPHILS % (AUTO) 0.7 % (0.0-5.0); EOSINOPHILS # (AUTO) 0.21 K/uL (0.00-0.70); EOSINOPHILS % (AUTO) 3.1 % (0.0-8.0); HEMATOCRIT 39.9 % (36-48); IMMATURE GRANULOCYTE ABSOLUTE 0.02 K/uL (0-1); LYMPHOCYTES # (AUTO) 3.3 K/uL (1.0-4.8); LYMPHOCYTES % (AUTO) 48.5 % (21.0-51.0); MEAN CORPUSCULAR HEMOGLOBIN 29.1 pg (27.0-33.0); MEAN CORPUSCULAR HGB CONC 34.3 g/dL (32.0-36.0); MEAN CORPUSCULAR VOLUME 84.7 fL (79-99); MONOCYTES # (AUTO) 0.5 K/uL (0.1-1.0); MONOCYTES % (AUTO) 7.3 % (3.0-13.0); NEUTROPHILS # (AUTO) 2.7 K/uL (1.8-7.7); NEUTROPHILS % (AUTO) 40.1 % (40.0-77.0); PLATELET COUNT (AUTO) 230 K/uL (130-400); RED BLOOD CELL COUNT(AUTO) 4.71 MIL/uL (4.00-5.50); RED CELL DISTRIBUTION WIDTH 13.2 % (11.0-15.5); WHITE BLOOD COUNT (AUTO) 6.7 K/uL (4.8-10.8)
[2022-11-29 23:06] LABS: CARBON DIOXIDE 32 mmol/L (21-32); CHLORIDE 101 mmol/L (101-111); CREATININE 0.9 mg/dL (0.5-1.5); GLOMERULAR FILTR. RATE CALC 85 mL/min (>90); GLUCOSE,RANDOM 116 mg/dL (70-105); POTASSIUM 3.7 mmol/L (3.5-5.1); SODIUM SERUM 138 mmol/L (136-145); UREA NITROGEN, BLOOD 11 mg/dL (7-18)
[2022-11-29 23:10] LABS: ALCOHOL, BLOOD < 3 mg/dL (0-10); SALICYLATE < 2.8 mg/dL (2.8-20.0)
[2022-11-29 23:11] LABS: ACETAMINOPHEN < 1 mcg/mL (10-30)
[2022-11-29 23:12] LABS: AMPHET/METH SCREEN,URINE NEGATIVE (NEGATIVE); BARBITURATE SCREEN, URINE NEGATIVE (NEGATIVE); BENZODIAZEPINES SCREEN,URINE NEGATIVE (NEGATIVE); CANNABINOID SCREEN,URINE NEGATIVE (NEGATIVE); COCAINE SCREEN,URINE NEGATIVE (NEGATIVE); OPIATE SCREEN,URINE NEGATIVE (NEGATIVE); PHENCYCLIDINE SCREEN,URINE NEGATIVE (NEGATIVE)
[2022-11-30 03:01] VITALS: BP 134/80; PULSE 80; RESP 18; O2SAT 97
== END 2022-11-30 03:02 | disposition home or self-care (01) ==
LOC: EDH 21:58
DX: F32.A Depression, unspecified (principal); F41.9 Anxiety disorder, unspecified; E11.9 Type 2 diabetes mellitus without complications; J45.909 Unspecified asthma, uncomplicated; I10 Essential (primary) hypertension; F17.200 Nicotine dependence, unspecified, uncomplicated; Z79.84 Long term (current) use of oral hypoglycemic drugs; Z79.899 Other long term (current) drug therapy
CPT/HCPCS: 99283; 80048; 80305; 85025; 81001; 81025; 36415; G0481